=== PATIENT | male | born 1960 | race African-American/Black ===

== ENCOUNTER 2016-07-20 08:29 | Emergency (ER) | payer OTHER ==
[~2016-07-20 08:29] MED LIST: Sodium Chloride 0.9% 1,000 ML BAG ONE
[2016-07-20 09:29] LABS: #Basophils 0.1 thou/uL (0.0-0.2); #Monocytes 0.4 thou/uL (0.11-0.59); #Neutrophils 4.3 thou/uL (1.40-6.50); %Basophils 1.9 % (0.0-1.0); %Eosinophils 0.4 % (0.0-10.0); %Lymphocytes 17.8 % (21.0-51.0); %Monocytes 6.5 % (0.0-10.0); %Neutrophils 73.6 % (42.0-75.0); Hemoglobin 15.4 g/dL (14.0-18.0); Mean Corpuscular HGB CONC 33.9 g/dL (32.0-36.0); Mean Corpuscular Hemoglobin 29.4 pg (27.0-31.0); Mean Corpuscular Volume 86.5 fl (80.0-94.0); Platelet Count 259 thou/uL (130-400); RBC Distribution Width 13.2 % (11.5-14.5); Red Blood Cell (RBC) Count 5.23 mill/uL (4.70-6.10); White Blood Cell (WBC) Count 5.9 thou/uL (4.8-10.8)
[2016-07-20 09:39] LABS: ALT (SGPT) 10 U/L (0-55); AST (SGOT) 11 U/L (5-34); Albumin 4.3 g/dL (3.5-5.0); Alkaline Phosphatase 49 U/L (40-150); Anion Gap 15 mmol/L (10-20); BUN (Urea Nitrogen) 11 mg/dL (8.4-25.7); Bilirubin, Total 0.7 mg/dL (0.2-1.2); Calc. Creatinine Clearance 0 mL/min (70-130); Calcium 8.6 mg/dL (7.8-10.44); Carbon Dioxide 26 mmol/L (22-29); Chloride 101 mmol/L (98-107); Estimated GFR-MDRD 85; Globulin 3.4 g/dL (2.4-3.5); Glucose 114 mg/dL (70-105); Lipase 8 U/L (8-78); Potassium 3.2 mmol/L (3.5-5.1); Protein, Total 7.7 g/dL (6.0-8.3); Sodium 139 mmol/L (136-145)
--- NOTE | 2016-07-20 09:55 | RAD ---
RADIOGRAPH CHEST 1 VIEW RADIOGRAPH ABDOMEN 2 VIEWS: Date: 07-20-16 Time: 8:55 a.m. HISTORY: 55-year-old male with nausea and emesis. COMPARISON: Chest radiograph of 11-26-14. FINDINGS: Left ventricular configuration of the heart. No pulmonary edema or consolidation. New finding of e ffacement of left lateral costophrenic angle and mild thickening of the left lateral lower pleural s tripe suggestive of small left pleural effusion. No pneumothorax. Prominent air filled loop of transverse colon just inferior to the diaphragm at midline and bilatera lly makes it somewhat difficult to evaluate for pneumoperitoneum. This is similar to 03-11-12. New finding of air filled multiple dilated small bowel loops with differential air fluid levels in the l eft side of the abdomen. Air filled loops of colon in the right side of the abdomen, with air fluid levels. Again noted are the multiple plates and screws fixating old left pelvic fracture. Chronic ally superior location of left femoral head pseudoarticulation with left lower iliac wing, with dege nerative changes at the pseudoarthrosis. IMPRESSION: 1. Abnormal bowel gas pattern which may represent ileus and possible bowel malrotation. Early smal l bowel obstruction is not excluded. 2. chronic left hip dislocation, with sequelae, including pseudoarthrosis. 3. Old open reduction i nternal fixation of left pelvis. 4. Small left pleural effusion. JESE POS: SANDRA
--- NOTE | 2016-07-20 10:56 | CT ---
CT ABDOMEN WITH IV CONTRAST CT PELVIS WITH IV CONTRAST: DATE: 07/20/16. HISTORY: Diffuse abdominal pain with nausea and vomiting. CONTRAST: 100 mL of Isovue 300 contrast. COMPARISON: 11/26/14. FINDINGS: There is a stable subcentimeter nodular density seen at the right lung base adjacent to the hemidiap hragm which measures approximately 7 mm. On the coronal reformatted images, there is a suggestion of a focus of increased density and this may represent a calcified granuloma, but this cannot be fur ther characterized on this exam. There is a tiny left pleural effusion and atelectasis present. Again noted are the hypodense lesions within the right hepatic lobe, the largest again measuring 3 c m demonstrating characteristics most compatible with a hemangioma. Smaller low-density areas are al so stable in size, the next largest hypodense lesion measuring 2 cm, which cannot be characterized a s hemangiomas and are difficult to further characterize on this exam. There is a prominent fold within the gallbladder with increased density present in the gallbladder l ikely related to gallbladder filled with sludge and/or gallbladder calculi. The spleen, pancreas, bilateral adrenal glands, and kidneys demonstrate a normal CT appearance. Uri nary bladder is normal in appearance. There are dilated loops of small bowel measuring up to 3.5 cm in diameter. More decompressed distal loops of small bowel are seen. The exact transition point is difficult to delineate on this examin ation. Given decompressed loops of bowel, findings are concerning for a partial small bowel obstruc tion. Abdominal aorta is normal in caliber. There is a circumaortic left renal vein incidentally noted. There is no free fluid or free intraperitoneal gas seen in the abdomen or pelvis. Postsurgical changes of the left acetabulum are again seen with severe osteoarthritis left hip and r emodeling of the acetabulum and left femoral head with subchondral cystic changes and sclerosis pres ent which is similar to the prior exam and findings are likely related to posttraumatic osteoarthrit is. IMPRESSION: 1. Partial small bowel obstruction. The exact transition point is difficult to delineate but is pr obably in the left mid to lower abdomen. 2. Hypodense lesions in the right hepatic lobe, the majority of which are difficult to characterize . The largest hypodense lesion measures 3 cm, which demonstrates peripheral areas of enhancement an d has characteristics most suggestive of a hemangioma. Additional hypodense lesions cannot be furth er characterized but are stable. 3. Tiny left pleural effusion and atelectasis. 4. Stable pulmonary nodule at the right lung base. 5. Prominent fold in the gallbladder with increased density distal to the area of the prominent fol d, and this could be related to a gallbladder filled with sludge. POS: NICK
[2016-07-20] MEDS ORDERED: Lidocaine 1% 20 ML MDV ONE (11:42)
[2016-07-20] MEDS ORDERED: Lidocaine 2% Jelly 5 ML TUBE ONE (11:42)
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
[2016-07-20] MEDS ORDERED: NS 0.9% w/ 40 MEQ KCL 1,000 ML IV ONE (12:24)
[2016-07-20] MEDS ORDERED: Iopamidol 370 76% 125 ML VIAL FS ONE (13:22)
== END 2016-07-20 14:11 | disposition short-term general hospital (02) ==
LOC: MADERS 08:29 → MERGE 08:29 → MADERS 14:11
DX: K56.60 Unspecified intestinal obstruction (principal); I10 Essential (primary) hypertension; F79 Unspecified intellectual disabilities
CPT/HCPCS: 36415; 74022; 74177; 80053; 83690; 83735; 85025; 96360; 96361; J2001; J7050

== ENCOUNTER 2016-09-20 11:36 | Outpatient (CLI) | payer OTHER ==
[2016-09-20 12:17] LABS: Anion Gap 15 mmol/L (10-20); BUN (Urea Nitrogen) 13 mg/dL (8.4-25.7); Calc. Creatinine Clearance 0 mL/min (70-130); Calcium 9.5 mg/dL (7.8-10.44); Carbon Dioxide 24 mmol/L (22-29); Chloride 103 mmol/L (98-107); Estimated GFR-MDRD 83; Glucose 103 mg/dL (70-105); Potassium 3.9 mmol/L (3.5-5.1); Sodium 138 mmol/L (136-145)
== END 2016-09-20 11:37 | disposition home or self-care (01) ==
LOC: MADLABBHPM 11:36
PROVIDERS: ATTEND Family Medicine
DX: I10 Essential (primary) hypertension (principal)
CPT/HCPCS: 36415; 80048